=== PATIENT | female | born 1965 | race Caucasian/White ===

== ENCOUNTER 2023-04-15 08:47 | Observation (INO) ==
--- NOTE | 2023-03-14 14:28 | PAT Medication Instructions ---
Medication Instructions Date of Service March 14, 2023 Home Medications acetaminophen 650 mg tablet,extended release (Tylenol Arthritis Pain) 650 mg PO Q12H PRN Pain diclofenac sodium 2 % topical solution in packet (Pennsaid) 1 packet topical BID PRN Pain duloxetine 60 mg capsule,delayed release 60 mg PO BID folic acid 1 mg tablet 1 mg PO QAM gabapentin 100 mg capsule 100 mg PO TID guaifenesin 600 mg tablet, extended release 12 hr (Mucinex) 600 mg PO BID PRN Congestion leflunomide 20 mg tablet (Arava) 20 mg PO HS levothyroxine 150 mcg capsule 150 mcg PO QAM rituximab 10 mg/mL concentrate,intravenous (Rituxan) 10 mg IV UD vitamin B complex (B Complex-Vitamin B12 tablet) 1 tab PO QAM Black Elderberry 1 cap PO BID Magnesium Tablet 1 tab PO HS aspirin 81 mg tablet,delayed release 81 mg PO HS atorvastatin 20 mg tablet 20 mg PO HS cetirizine 10 mg tablet (Zyrtec) 10 mg PO DAILY PRN allergy relief coQ10 (ubiquinol) 100 mg capsule 100 mg PO HS ergocalciferol (vitamin D2) 1,250 mcg (50,000 unit) capsule (Vitamin D2) 1,250 mcg PO WK multivit,Ca,iron,vte-WL-jtxhwga-kvznmdf-zeod-ZAZT 3 mg-133 mcg capsule 1 cap PO BID potassium chloride 10 mEq capsule,extended release 10 meq PO QAM verapamil 120 mg tablet 120 mg PO HS ASK your surgeon for instructions diclofenac sodium 2 % topical solution in packet (Pennsaid) 1 packet topical BID PRN Pain ASK your prescriber and surgeon rituximab 10 mg/mL concentrate,intravenous (Rituxan) 10 mg IV UD leflunomide 20 mg tablet (Arava) 20 mg PO HS STOP taking 2 weeks before surgery (or as soon as possible if surgery is within 2 weeks) Black Elderberry 1 cap PO BID coQ10 (ubiquinol) 100 mg capsule 100 mg PO HS multivit,Ca,iron,znk-YJ-asvenar-bfvyxnb-cnjv-PMXF 3 mg-133 mcg capsule 1 cap PO BID DO NOT take the morning of surgery folic acid 1 mg tablet 1 mg PO QAM guaifenesin 600 mg tablet, extended release 12 hr (Mucinex) 600 mg PO BID PRN Congestion vitamin B complex (B Complex-Vitamin B12 tablet) 1 tab PO QAM cetirizine 10 mg tablet (Zyrtec) 10 mg PO DAILY PRN allergy relief ergocalciferol (vitamin D2) 1,250 mcg (50,000 unit) capsule (Vitamin D2) 1,250 mcg PO WK potassium chloride 10 mEq capsule,extended release 10 meq PO QAM Take morning of surgery With a small sip of water, OTHERWISE NOTHING TO EAT OR DRINK AFTER MIDNIGHT: acetaminophen 650 mg tablet,extended release (Tylenol Arthritis Pain) 650 mg PO Q12H PRN Pain (if needed) duloxetine 60 mg capsule,delayed release 60 mg PO BID gabapentin 100 mg capsule 100 mg PO TID levothyroxine 150 mcg capsule 150 mcg PO QAM Take evening before surgery acetaminophen 650 mg tablet,extended release (Tylenol Arthritis Pain) 650 mg PO Q12H PRN Pain (if needed) duloxetine 60 mg capsule,delayed release 60 mg PO BID gabapentin 100 mg capsule 100 mg PO TID guaifenesin 600 mg tablet, extended release 12 hr (Mucinex) 600 mg PO BID PRN Congestion (if needed) Magnesium Tablet 1 tab PO HS aspirin 81 mg tablet,delayed release 81 mg PO HS atorvastatin 20 mg tablet 20 mg PO HS cetirizine 10 mg tablet (Zyrtec) 10 mg PO DAILY PRN allergy relief (if needed) verapamil 120 mg tablet 120 mg PO HS Other Notes If you have any questions please call us at [phone] or [phone] or [phone] or [phone]
--- NOTE | 2023-03-19 12:13 | Anesthesiology Consultation ---
Date of Service March 19, 2023 Assessment & Plan (1) Encounter for pre-operative examination: - Case discussed in detail with Dr Tejeda who advised that patient does not require further evaluation prior to surgery from his standpoint. - Outpatient joint assessment: Patient is currently scheduled for inpatient pathway. If re-evaluated and patient/surgeon requests outpatient pathway, patient is not recommended candidate for outpatient joint program from anesthesia standpoint. Chart Review Chart Review: Acceptable Risk for Surgery and Patient seen in Pre Admission Testing Teaching & Discussion Pre-Anesthesia Teaching/Discussion Notes: Instructed NPO after midnight before surgery, except medications with 15 cc of water. Medication instructions provided according to the PAT guidelines. History Surgery Operation Date: 04/02/23 07:00 Proposed Procedures p Left Total Knee Arthroplasty - Braulio Montoya MD Height/Weight Height: 5 ft 5 in Weight: 127.006 kg Allergies Allergy/AdvReac Type Severity Reaction Status Date / Time egg Allergy Intermediate Migraine Verified 03/13/23 12:41 Penicillins Allergy Intermediate Hives Verified 03/13/23 12:41 doxycycline Allergy Mild Rash Verified 03/13/23 12:41 Sulfa (Sulfonamide Allergy Mild itching Verified 03/13/23 12:41 Antibiotics) etanercept [From Enbrel] Allergy Unknown can't Verified 03/13/23 12:41 remember reaction infliximab [From Remicade] Allergy Unknown can't Verified 03/13/23 12:41 remember reaction minocycline Allergy Unknown can't Verified 03/13/23 12:41 remember reaction tramadol [From Ultram] Allergy Unknown can't Verified 03/13/23 12:41 remember reaction Medications Home Medications Medication Instructions Recorded Confirmed Last Taken acetaminophen 650 mg 650 mg PO Q12H PRN Pain 09/28/20 03/13/23 Unknown tablet,extended release (Tylenol Arthritis Pain) diclofenac sodium 2 % topical 1 packet topical BID PRN Pain 09/28/20 03/13/23 Unknown solution in packet (Pennsaid) duloxetine 60 mg capsule,delayed 60 mg PO BID 09/28/20 03/13/23 Unknown release folic acid 1 mg tablet 1 mg PO QAM 09/28/20 03/13/23 Unknown gabapentin 100 mg capsule 100 mg PO TID 09/28/20 03/13/23 Unknown guaifenesin 600 mg tablet, 600 mg PO BID PRN Congestion 09/28/20 03/13/23 Unknown extended release 12 hr (Mucinex) leflunomide 20 mg tablet (Arava) 20 mg PO HS 09/28/20 03/13/23 Unknown levothyroxine 150 mcg capsule 150 mcg PO QAM 09/28/20 03/13/23 Unknown rituximab 10 mg/mL 10 mg IV UD 09/28/20 03/13/23 Unknown concentrate,intravenous (Rituxan) vitamin B complex (B 1 tab PO QAM 09/28/20 03/13/23 Unknown Complex-Vitamin B12 tablet) Black Elderberry 1 cap PO BID 03/13/23 03/13/23 Unknown Magnesium Tablet 1 tab PO HS 03/13/23 03/13/23 Unknown aspirin 81 mg tablet,delayed 81 mg PO HS 03/13/23 03/13/23 Unknown release atorvastatin 20 mg tablet 20 mg PO HS 03/13/23 03/13/23 Unknown cetirizine 10 mg tablet (Zyrtec) 10 mg PO DAILY PRN allergy relief 03/13/23 03/13/23 Unknown coQ10 (ubiquinol) 100 mg capsule 100 mg PO HS 03/13/23 03/13/23 Unknown ergocalciferol (vitamin D2) 1,250 1,250 mcg PO WK 03/13/23 03/13/23 Unknown mcg (50,000 unit) capsule (Vitamin D2) multivit,Ca,iron,dox-RD-jjczgzn-uncqxgo-giof-WWGX 1 cap PO BID 03/13/23 03/13/23 Unknown 3 mg-133 mcg capsule potassium chloride 10 mEq 10 meq PO QAM 03/13/23 03/13/23 Unknown capsule,extended release verapamil 120 mg tablet 120 mg PO HS 03/13/23 03/13/23 Unknown Past Medical History Medical History (Updated 03/20/23 @ 08:56 by Liz Parry PA-C) Arthritis 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>blood work wnl now Degenerative disc disease Depression Fibromyalgia GERD (gastroesophageal reflux disease) controlled, stable per pt Giant cell arteritis several yrs ago, s/p prednisone course, follows with rheumatology and ophthalmology; denies visual changes since stroke History of anemia History of blood transfusion x 3, 03/2022 History of COVID-19 03/2022>still has sense of smell problems *hospitalized at time with covid pneumonia @ [facility] Hyperlipidemia Hypertension controlled, stable in exception of elevated pain Hypothyroidism Kidney stone R at present-under monitoring Lymphedema legs bilat-denies limb restriction Migraine reason for verapamil Pulmonary embolism when dx with covid 03/2022 Rheumatoid arthritis Stroke "had 2 strokes when hospitalized for covid 03/2022>still has numbness left hand and impacted upper right visual field" Patient denies h/o seizures, heart attack, heart failure, or DM. Exercise / Class Metabolic Activity III < 4 Walking/Shop/Light housework (denies chest discomfort or shortness of breath with usual activities, ambulates with cane or rolling walker; no steps in home) Past Family History Family History Other No family history of adverse response to anesthesia Past Surgical History Surgical History (Updated 03/19/23 @ 12:38 by Liz Parry PA-C) H/O foot surgery rt foot>hammer toe and bunion correction History of ankle surgery rt ankle fusion History of colonoscopy History of esophagogastroduodenoscopy (EGD) History of hysterectomy History of tooth extraction Nausea and vomiting after administration of anesthetic agent denies needing scop patch Past Anesthesia History No Hx of Anesthesia Complications and No Family Hx of Anesthesia Complications History of PONV History of PONV (denies needing scop patch) and Hx of Motion Sickness Social History Smoking Status: Never smoker Do You Dip or Chew Tobacco: No Hx Alcohol Use: No substance use type: does not use Review of Systems Snoring, denies witnessed apneas. Patient denies chest pain, shortness of breath, dyspnea on exertion, fever, chills, cough, wheezing, or palpitations. Physical Exam Vital Signs Vitals BP 131/70 P 80 TEMP 98.6 SP02 95% on RA RESP 18 Physical Patient resting comfortably in chair in NAD, alert and oriented, responding appropriately throughout visit Mildly limited cervical extension range of motion with mild pain, without radicular symptoms TMD 3.5 finger breadths Mallampati Score 3 Dentition: loose right upper cap and one fixed cap, denies chipped or loose teeth, crowns, implants or bridges Lungs: normal respiratory effort. Good air movement, clear throughout to auscultation, no adventitious breath sounds Cardiac: regular rate and rhythm, no murmurs noted Carotid arteries: negative bruit bilat Lab Results Anesthesia Preop Results Results Anesthesia Widget: WBC 5.70 K/ul (4.8-10.8) 03/19/23 Hgb 13.4 g/dl (12.0-16.0) 03/19/23 Hct 41.4 % (37.0-47.0) 03/19/23 Plt 359 K/uL (130-400) 03/19/23 Na 141 mmol/L (136-145) 03/19/23 K 4.4 mmol/L (3.5-5.1) 03/19/23 Cl 107 mmol/L (98-107) 03/19/23 CO2 29 mmol/L (21-32) 03/19/23 BUN 22 mg/dl (6-23) 03/19/23 Creat 0.83 mg/dl (0.6-1.2) 03/19/23 Glucose Level 73 mg/dl (70-99(Fasting)) 03/19/23 PT 10.3 Seconds (9.0-12.0) 03/19/23 PTT 26.2 Seconds (21.0-31.0) 03/19/23 INR 0.9 (0.9-1.1) 03/19/23 Blood Type A Positive 03/19/23 Antibody Screen NEGATIVE 03/19/23 Testing Electrocardiogram Date: 03/19/23 NSR, rate 75 bpm Chest X-Ray Date: 03/19/23 No acute process Cervical Spine Date: 03/19/23 Severe multilevel intervertebral disc space narrowing with moderate to advanced spondylotic spurring and facet arthrosis. No acute fracture, subluxation or osseous erosion identified. Normal predental interval. No prevertebral edema. Lung apices appear clear. IMPRESSION: No acute fracture or subluxation
--- NOTE | 2023-04-13 06:59 | History & Physical Report ---
Date of Service April 13, 2023 Assessment & Plan (1) Osteoarthritis of knee: Patient has severe right knee arthritis with progressive deformity chronic lymphedema and failed all conservative measures. She is certainly not an optical Candidate due to multiple reasons but really no other choice or options to improve her functional status. She is hoping to proceed with knee replacement. She understands the risks especially with her chronic lymphedema history of a DVT and PE in the past. Organ to take her to the operating to a hinged knee replacement most likely. Will use Xarelto for DVT prophylaxis as well as teds and SCDs. She will continue lymphedema treatment to make this optimal. We will use perioperative antibiotics and likely put some antibiotics in her cement. Despite this the risks of DVT PE infection were explained to the patient she understands and desires to proceed. Informed consent was obtained. (2) Lymphedema: (3) Morbid obesity: (4) Fibromyalgia: History of Present Illness Chief Complaint: . Persistent left knee pain discomfort and instability and inability to ambulate. Primary Care Provider: Ching Stevens MD . The patient is a 59-year-old female with a history of chronic bilateral lower extremity lymphedema and progressive knee pain discomfort and deformity. She is currently on disability for multiple 1 issues including arthritis, fibromyalgia, migraine headaches. She has a several year history of increasing bilateral knee pain discomfort left side quite a bit worse than the right. She is developed p rogressive deformity to her knee to the point where she has to use a cane to get around and cannot walk more than about a block at a time. She been through extensive treatment including physical therapy and lymphedema treatment which has been unsuccessful. She is asked extensive nonoperative management of arthritis by Dr. Arredondo in the past. She is really hoping to get her knee fixed. Markedly debilitated by her pain and dysfunction. Allergies Allergy/AdvReac Type Severity Reaction Status Date / Time egg Allergy Intermediate Migraine Verified 03/13/23 12:41 Penicillins Allergy Intermediate Hives Verified 03/13/23 12:41 doxycycline Allergy Mild Rash Verified 03/13/23 12:41 Sulfa (Sulfonamide Allergy Mild itching Verified 03/13/23 12:41 Antibiotics) etanercept [From Enbrel] Allergy Unknown can't Verified 03/13/23 12:41 remember reaction infliximab [From Remicade] Allergy Unknown can't Verified 03/13/23 12:41 remember reaction minocycline Allergy Unknown can't Verified 03/13/23 12:41 remember reaction tramadol [From Ultram] Allergy Unknown can't Verified 03/13/23 12:41 remember reaction Home Medications Medication Instructions Recorded Confirmed Type acetaminophen 650 mg 650 mg PO Q12H PRN Pain 09/28/20 03/13/23 History tablet,extended release (Tylenol Arthritis Pain) diclofenac sodium 2 % topical 1 packet topical BID PRN Pain 09/28/20 03/13/23 History solution in packet (Pennsaid) duloxetine 60 mg capsule,delayed 60 mg PO BID 09/28/20 03/13/23 History release folic acid 1 mg tablet 1 mg PO QAM 09/28/20 03/13/23 History gabapentin 100 mg capsule 100 mg PO TID 09/28/20 03/13/23 History guaifenesin 600 mg tablet, 600 mg PO BID PRN Congestion 09/28/20 03/13/23 History extended release 12 hr (Mucinex) leflunomide 20 mg tablet (Arava) 20 mg PO HS 09/28/20 03/13/23 History levothyroxine 150 mcg capsule 150 mcg PO QAM 09/28/20 03/13/23 History rituximab 10 mg/mL 10 mg IV UD 09/28/20 03/13/23 History concentrate,intravenous (Rituxan) vitamin B complex (B 1 tab PO QAM 09/28/20 03/13/23 History Complex-Vitamin B12 tablet) Black Elderberry 1 cap PO BID 03/13/23 03/13/23 History Magnesium Tablet 1 tab PO HS 03/13/23 03/13/23 History aspirin 81 mg tablet,delayed 81 mg PO HS 03/13/23 03/13/23 History release atorvastatin 20 mg tablet 20 mg PO HS 03/13/23 03/13/23 History cetirizine 10 mg tablet (Zyrtec) 10 mg PO DAILY PRN allergy relief 03/13/23 03/13/23 History coQ10 (ubiquinol) 100 mg capsule 100 mg PO HS 03/13/23 03/13/23 History ergocalciferol (vitamin D2) 1,250 1,250 mcg PO WK 03/13/23 03/13/23 History mcg (50,000 unit) capsule (Vitamin D2) multivit,Ca,iron,mlx-DZ-cowufxw-smkuviv-cpat-UQQF 1 cap PO BID 03/13/23 03/13/23 History 3 mg-133 mcg capsule potassium chloride 10 mEq 10 meq PO QAM 03/13/23 03/13/23 History capsule,extended release verapamil 120 mg tablet 120 mg PO HS 03/13/23 03/13/23 History Past Med/Surg History Medical History Arthritis 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>blood work wnl now Degenerative disc disease Depression Fibromyalgia GERD (gastroesophageal reflux disease) controlled, stable per pt Giant cell arteritis several yrs ago, s/p prednisone course, follows with rheumatology and ophthalmology; denies visual changes since stroke History of anemia History of blood transfusion x 3, 03/2022 History of COVID-19 03/2022>still has sense of smell problems *hospitalized at time with covid pneumonia @ [facility] Hyperlipidemia Hypertension controlled, stable in exception of elevated pain Hypothyroidism Kidney stone R at present-under monitoring Lymphedema legs bilat-denies limb restriction Migraine reason for verapamil Pulmonary embolism when dx with covid 03/2022 Rheumatoid arthritis Stroke "had 2 strokes when hospitalized for covid 03/2022>still has numbness left hand and impacted upper right visual field" Surgical History H/O foot surgery rt foot>hammer toe and bunion correction History of ankle surgery rt ankle fusion History of colonoscopy History of esophagogastroduodenoscopy (EGD) History of hysterectomy History of tooth extraction Nausea and vomiting after administration of anesthetic agent denies needing scop patch Family History Other No family history of adverse response to anesthesia Social History Smoking Status: Never smoker Second Hand Exposure: Yes (as a child); Do You Dip or Chew Tobacco: No; Hx Alcohol Use: No Preferred Language: Scottish Wedding Consultant Required: No Beliefs That Will Affect Care: None Current Living Situation: Significant Other Feels Safe at Home: Yes Assistive Devices: Cane, Glasses and Walker Review of Systems All systems reviewed & are unremarkable except as noted in HPI & below. Physical Exam . Physical examination reveals a pleasant fairly large middle-age female who looks in reasonably good health. Examination left knee reveals patient walks with use of a cane. Got a fairly large soft tissue envelope. She got significant lymphedema in both legs plegic. Below the knee. He is got marked valgus deformity to her knee. This is increased with weightbearing. She got laxity of her MCL with stress testing. Range of motion about 5 degrees short of full extension to about 95 degrees of flexion. Limited by soft tissues. No pain with hip motion. Constitutional WD/WN, vitals as above Respiratory normal respiratory effort, lungs clear to auscultation Cardiovascular RRR, no murmur, no edema Gastrointestinal (Abdomen) normal bowel sounds, soft, nontender, no hepatosplenomegaly Neurologic patellar DTR's 2+ bilat, sensation intact and PERRL, EOMI, accommodation nl, no face palsy, no dysarthria Lymphatic Fairly extensive diffuse symmetric lymphedema in her lower extremities below her knees. Results & Data Results & Data Laboratory Results . Diagnostic Findings . X-rays of the left knee reveals advanced left knee DJD. She got complete loss of her lateral joint space we got severe valgus 2 mm knee with widening of the medial clear space. Osteophytes primarily laterally. PG Care Time/CCT Total # of Minutes Spent Total Time Spent with Patient: Total time spent is greater than 50% in coordination of care (as documented) at patient's floor/unit and/or counseling patient: Coding Level of Care Code None Diagnoses Osteoarthritis of knee M17.10 Lymphedema I89.0 Morbid obesity E66.01 Fibromyalgia M79.7
[~2023-04-15 08:47] MED LIST: ACETAMINOPHEN 500 MG TAB PO SCH; ALLERGY Noted to ORDERED Medication SCH; BUPIVACAINE 0.25% PF 30 ML VIAL ONE; BUPIVACAINE 0.5 % 5 MG/1 ML PF 10ML VIAL ONE; BUPIVACAINE LIPOSOME/PF 266 MG, BUPIVACAINE/EPINEPHRINE 50 ML, SODIUM CHLORIDE 0.9% PF ... INFIL SCH; CeleBREX 200 MG CAP PO SCH; DEXAMETHASONE SOD INJ 4 MG/ML VIAL ONE; EPINEPHrine INJ 1 MG/ML AMP ONE; FAMOTIDINE 20 MG TAB PO SCH; LR 500ML BOLUS, THEN 15ML/HR IV SCH; LR 60ML/HR IV SCH; METOCLOPRAMIDE HCL 10 MG TABLET PO SCH; Scopolamine 1 MG TDSY TD SCH; Scopolamine CHECK PATCH PLACEMENT SCH; TRANEXAMIC ACID 1,000 MG **IV Intra-op IV SCH; dexAMETHasone**PF** 10 MG/ML VIAL IV SCH
--- NOTE | 2023-04-15 08:51 | History & Physical Bridge Note ---
Date of Service April 15, 2023 History & Physical Bridge Note I have examined the patient, reviewed the History & Physical and in the interval since the performance of the History & Physical I have noted the following changes of clinical significance: no changes noted. We will be doing a left Knee Replacement. Dictation mentions both left and right, but we will be doing the left knee.
[2023-04-15] MEDS ORDERED: ceFAZolin 3000MG/72.5 ML BAG IV ONE (09:06)
[2023-04-15] MEDS ORDERED: fentaNYL citrate PF 100 MCG/2 ML VIAL ONE ×2 (09:46→13:14)
[2023-04-15] MEDS ORDERED: MIDAZOLAM HCL 1 MG/ML 2ML VIAL ONE ×2 (09:46→11:35)
[2023-04-15] MEDS ORDERED: PROPOFOL IV EMULSION 10 MG/ML 20 ML VIAL IV ONE ×5 (09:47→13:43)
[2023-04-15] MEDS ORDERED: ONDANSETRON INJ 2 MG/ML 2 ML VIAL IV PRN ×2 (10:04→15:24)
[2023-04-15] MEDS ORDERED: fentaNYL citrate PF 100 MCG/2 ML VIAL IV PRN (10:04)
[2023-04-15] MEDS ORDERED: ATROPINE SULFATE 0.1 MG/ML 10ML SYR IV PRN (10:04)
[2023-04-15] MEDS ORDERED: ePHEDrine sulfate 50 MG/ML AMP IV PRN (10:04)
[2023-04-15] MEDS ORDERED: VANCOMYCIN HCL 1000MG/20ML VIAL ONE (10:47)
[2023-04-15] MEDS ORDERED: BUPIVACAINE/EPINEPHRINE 0.25% 1:200,000 30 ML VIAL ONE (10:47)
[2023-04-15] MEDS ORDERED: SODIUM CHLORIDE 0.9% PF 50 ML VIAL ONE (10:48)
[2023-04-15] MEDS ORDERED: BUPIVACAINE LIPOSOME 1.3% 266 MG/20 ML VIAL ONE (10:48)
[2023-04-15] MEDS ORDERED: LIDOCAINE 2% 2 ML VIAL/AMP(20MG/ML) INFIL ONE (11:39)
[2023-04-15] MEDS ORDERED: KETAMINE 50 MG/5 ML SYRINGE ONE (13:03)
[2023-04-15] MEDS ORDERED: ONDANSETRON INJ 2 MG/ML 2 ML VIAL ONE (13:47)
--- NOTE | 2023-04-15 14:23 | Operative Report ---
PG Post Operative Report Pre & Post Diagnosis Operation Date: 04/15/23 10:20 Pre-Op Diagnosis: Osteoarthritis of Left knee Post-Op Diagnosis: Osteoarthritis of Left knee I identified the patient and participated in the time-out.: Yes Procedure Operation Date: 04/15/23 10:20 Actual Procedures p Left Total Knee Arthroplasty(Left) - Braulio Montoya MD Surgeon Braulio Montoya MD Grab Hooker Basil Haas PA-C Estimated Blood Loss 50 Findings Consistent with Post-Op Diagnosis Operative findings reveal advanced left knee DJD. She had extensive grade 4 [id number] disease in all 3 compartments. She should have your valgus deformity to treat her knee with MCL deficiency. Her ACL was completely absent. The intercondylar notch was completely overgrown. She had a large osteophytes in all 3 compartments. Moderate-sized joint effusion. Large soft tissue envelope. Specimens Left knee sent for pathology. Anesthesia Type Spinal MAC Complications none Disposition Accompanied Patient To Recovery: No Indications Patient is a 58-year-old female said a long history of bilateral knee pain discomfort and progressive deformity. She been through extensive conservative care. She was actually having trouble even walking the even up to a block with her left knee. X-rays show severe tricompartment arthritis. She failed all conservative measures. She elected proceed with total knee arthroplasty. 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 We elect to use a hinged knee replacement due to her MCL deficiency. Description of Procedure Operative implants consist of: 1. Biomet OSS distal femoral hinged surface replacement with a 90 mm x 13 mm cemented stem. 2. Biomet OSS nonmodular long tibial tray-size 71. 3. 12 mm hinged polyethylene insert. 4. 31 x 8 all poly patella. The patient was taken the operating, identified, placed on the operating table supine position but all contact areas were appropriately padded. IV antibiotics were provided by the anesthesia team. A spinal anesthetic and abductor canal block had provided in the holding area. Gonzalez catheter was placed in sterile fashion. A left thigh-high tourniquet was placed. The left lower extremities then prepped and draped in usual sterile fashion. The left leg was elevated exsanguinated with use of an Esmarch and the turn was placed at 350 mmHg. An anterior posterior left knee was then performed to longitudinal incision centered over the patella. Sharp dissection Through subcutaneous tissue down the extensor mechanism. She had a very large soft tiss ue envelope. A medial prepped arthrotomy incision was made. Some subperiosteal dissection was carried out medially. The fat pad was resected from Neath patella tendon. Lateral patellofemoral ligament was released. Patella subluxated laterally. The knee was flexed. The osteophytes taken off distal femur. The ACL was absent. The PCL was released from distal femur the tibia subluxated anteriorly. Attention drawn the tibia. The intercondylar eminence was resected. The IM cutting guide was placed and the proximal tibial cut was made remove about 3 to 4 mm of bone from the medial side. The tibia was sized to a size 71. The drill and stem punch for the nonmodular long tibial tray was used and then the tibial tray was placed. Fit quite nicely. Attention drawn the femur. The distal femur stem with a sharp drill. Intramedullary canal was suction. A left 5 degree distal femoral resection block was placed. The distal femoral cut was made to remove the for the 3 cm distal lateral resurfacing segment. The IM fransisca was then placed again. The AP cutting guide was placed in the made parallel to the epicondylar axis. The anterior posterior cuts were made. I then reamed up to about a 16. We then trialed different implants and there the anterior flange of the femoral component would not quite fit the down on the bone as it was a too small. I then had to adjust very gradually resect some of the anterior femur to allow this to fit appropriately. We then trialed the knee and the 12 mm insert fit most appropriately. Attention drawn the patella. The patella is cleaned of all soft tissue. Patella thickness measured about 18 mm in thickness cut down to 13. It was sized to a size 31 patella. There were some very large osteophytes which were removed from around the patella. The lug holes were drilled for the patella button. Lateral osteophytes removed. Patella button was placed and the knee was taken through range of motion. Patella tracked quite nicely with no thumbs test. He was much improved from preoperatively. We elect to place these implants. Nupathe all trial implants were removed. Bone cement restrictors were placed in the distal femur and proxi mal tibia. I irrigated the wound extensively. We did inject locally with 100 cc of combination of 20 of Exparel, 30 cc normal saline, 50 cc of quarter percent Marcaine with epinephrine. We used 2 different packs of cement. A double batch of Palacos G cement was mixed with additional gram of vancomycin and the tibia was cemented. A additional double batch of Palacos G cement was mixed with an additional gram of vancomycin the femoral component was cemented in place. We placed the trial implant and then this and the patella was then cemented in the routine fashion. The knee was brought out in full extension till cement hardened. Final cement check was then performed. We then remove the trial bearing and placed a permanent 12 mm bearing. Attention drawn toward closing. The wounds irrigated coconuts pulsatile solution. The tourniquet was let down for tourniquet time of 106 minutes. Hemostasis reduced electrocautery. I did place an additional gram of vancomycin in the deep tissues as she is got chronic lymphedema and her risk of infection is significantly higher. The extensor mechanism then closed with #1 PDS suture in a [id number] fashion. Extensor mechanism checked found to be intact with subcutaneous tissues then closed with 2 Dexon suture in buried interrupted fashion skin was closed skin lavonne. Leg was then cleaned and dried and sterile dressed with Xeroform, 4 fours, sterile cast padding, Meet bandage were applied. The patient then transferred to the recovery room in stable condition. The patient tolerated procedure well and there were no complications. Basil Haas, my physician neurology physician assistant, was present for the entire procedure. His assistance was essential and required for appropriate patient positioning, prepping and draping, surgical exposure, performing the technical details of the operation, placement the implants, closure of the wound, and placement of the sterile bandage. I attest to the content of the Intraoperative Record and any orders documented therein. Any exceptions are noted below.
--- NOTE | 2023-04-15 14:49 | XRay Report ---
TWO VIEWS LEFT KNEE CLINICAL HISTORY: Postoperative examination. FINDINGS: AP and crosstable lateral portable views of the left knee are obtained. A hinged left knee arthroplasty is in near anatomic alignment. There are long tibial and femoral stems. There has been u ndersurface remodeling of the patella. No acute fracture is seen. There are expected postoperative ch anges around the knee including skin clips, soft tissue edema, and subcutaneous gas. IMPRESSION: Expected postoperative changes status post left knee arthroplasty. No acute fracture is s een. ACT 112: Negative or not required by law. Electronically signed by: Abel Pritchett M.D. 04/15/2023 2:48 PM
--- NOTE | 2023-04-15 14:53 | Anesthesiology Progress Note ---
Date of Service April 15, 2023 Anesthesia Post Procedure Vital Signs Vital Signs: Temp Pulse Resp BP Pulse Ox O2 Del Method O2 Flow Rate 04/15/23 14:50 36.6 C 77 14 129/71 95 Nasal Cannula 04/15/23 14:40 75 15 135/72 96 Nasal Cannula 04/15/23 14:30 78 15 155/77 H 96 Oxymask 2 04/15/23 14:20 94 H 18 160/68 H 98 Oxymask 4 04/15/23 14:17 36.3 C L 89 15 187/86 H 98 Oxymask 6 Pain Intensity Lower Back: Pain Intensity: 5 Left Shoulder: Pain Intensity: 7 Transfer of Care Handoff Completed per policy Notes Mental Status: alert / awake / arousable Patient Amnestic to Procedure: Yes Nausea / Vomiting: adequately controlled Pain: adequately controlled Airway Patency, RR, SpO2: stable & adequate BP & HR: stable & adequate Hydration State: stable & adequate Anesthetic Complications: no major complications apparent
[2023-04-15] MEDS ORDERED: bisacodyL 10 MG SUPP PR PRN (15:24)
[2023-04-15] MEDS ORDERED: MAGNESIUM HYDROXIDE SUSP 30 ML UDC PO PRN (15:24)
[2023-04-15] MEDS ORDERED: CETIRIZINE HCL 10 MG TABLET PO PRN (15:24)
[2023-04-15] MEDS ORDERED: ALUMINUM/MAGNESIUM SUSP 30 ML UDC PO PRN (15:24)
[2023-04-15] MEDS ORDERED: RITUXIMAB 10 MG/ML IV SCH (15:24)
[2023-04-15] MEDS ORDERED: guaiFENesin 600 MG TABCR PO PRN (15:24)
[2023-04-15] MEDS ORDERED: HYDROmorphone INJ 0.5 MG/0.5 ML SYR IV PRN (15:24)
[2023-04-15] MEDS ORDERED: METOCLOPRAMIDE HCL INJ 5 MG/ML 2 ML VIAL IV PRN (15:24)
[2023-04-15] MEDS ORDERED: NALOXONE HCL 0.4 MG/1 ML VIAL/CARP IV PRN (15:24)
[2023-04-15] MEDS ORDERED: diphenhydrAMINE Capsule 25 MG CAP PO PRN (15:24)
[2023-04-15] MEDS ORDERED: DICLOFENAC SOD 1% GEL 100 GM TUBE EXT PRN (15:52)
[2023-04-15] MEDS: SODIUM CHLORIDE 0.9% 1000ML 1,000 ML IV SCH (15:56)
[2023-04-15] MEDS: Scopolamine CHECK PATCH PLACEMENT SCH ×2 (15:59→23:37)
[2023-04-15] MEDS: KETOROLAC 30 MG/ML VIAL IV SCH ×2 (17:37→23:37)
[2023-04-15] MEDS: ASCORBIC ACID 500 MG TAB PO SCH (17:37)
[2023-04-15] MEDS: LEFLUNOMIDE 10 MG TAB PO SCH (20:07)
[2023-04-15] MEDS: ACETAMINOPHEN 500 MG TAB PO SCH (20:07)
[2023-04-15] MEDS: DULoxetine HCL 60 MG CAP PO SCH (20:07)
[2023-04-15] MEDS: GABAPENTIN 100 MG CAP PO SCH (20:07)
[2023-04-15] MEDS: VERAPAMIL HCL 40 MG TAB PO SCH (20:07)
[2023-04-15] MEDS: ATORVASTATIN 20 MG TAB PO SCH (20:07)
[2023-04-15] MEDS: ASPIRIN 81 MG ECTAB PO SCH (20:08)
[2023-04-15] MEDS: DOCUSATE SODIUM 100 MG CAP PO SCH (20:08)
[2023-04-15] MEDS: SENNA 8.6 MG TAB PO SCH (20:08)
[2023-04-15] MEDS ORDERED: TRANEXAMIC ACID / 0.7% NACL 1,000 MG/100 ML BAG IV SCH (20:15)
[2023-04-15] MEDS: ceFAZolin 2000MG 2,000 MG/15 ML SYR IV SCH (20:23)
[2023-04-15] MEDS ORDERED: SENNA 8.6 MG TAB PO SCH (21:00)
[2023-04-15] MEDS ORDERED: MAGNESIUM PO SCH (21:00)
[2023-04-15] MEDS ORDERED: BLACK ELDERBERRY PO SCH (21:00)
[2023-04-15] MEDS ORDERED: NON-FORMULARY MEDICATION (Coq10 (Ubiquinol) 100 mg Capsule) PO SCH (21:00)
[2023-04-16] MEDS: SODIUM CHLORIDE 0.9% 1000ML 1,000 ML IV SCH (00:36)
[2023-04-16] MEDS: oxyCODONE HCL IR 5 MG TAB (IMMEDIATE RELEASE) PO PRN ×3 (01:59→16:55)
[2023-04-16] MEDS: KETOROLAC 30 MG/ML VIAL IV SCH (05:10)
[2023-04-16] MEDS: ceFAZolin 2000MG 2,000 MG/15 ML SYR IV SCH (05:10)
[2023-04-16] MEDS: LEVOTHYROXINE SODIUM 150 MCG TABLET PO SCH (05:10)
[2023-04-16 07:44] LABS: Hematocrit (blood only) 34.5 % (37.0-47.0); Hemoglobin 11.1 g/dl (12.0-16.0); Mean Corpuscular Hemoglobin 32.2 pg (25.0-34.0); Mean Corpuscular Hgb Conc 32.2 g/dL (32.0-36.0); Mean Platelet Volume 10.3 fL (9.4-12.4); Platelet Count 323 K/uL (130-400); RDW Coefficient of Variation 13.6 % (11.5-14.5); RDW Standard Deviation 49.1 fL (36.4-46.3); Red Blood Count 3.45 M/uL (4.20-5.40); White Blood Count 11.71 K/ul (4.8-10.8)
[2023-04-16 07:49] LABS: Calcium 8.1 mg/dl (8.6-10.3); Creatinine Clr Calc Pharmacy 107.8 ml/min; Est GFR (African American) 95.6 ml/min; Est GFR (Non-African American) 82.5 ml/min; Potassium 3.9 mmol/L (3.5-5.1)
[2023-04-16] MEDS ORDERED: dexAMETHasone 10 MG in SYRINGE 0 ML IV SCH (08:00)
[2023-04-16] MEDS: ACETAMINOPHEN 500 MG TAB PO SCH ×3 (09:39→19:39)
[2023-04-16] MEDS: Scopolamine CHECK PATCH PLACEMENT SCH ×2 (09:40→15:31)
[2023-04-16] MEDS: DOCUSATE SODIUM 100 MG CAP PO SCH ×2 (09:40→19:40)
[2023-04-16] MEDS: MULTIVITAMIN TAB PO SCH (09:40)
[2023-04-16] MEDS: ASCORBIC ACID 500 MG TAB PO SCH ×2 (09:40→16:56)
[2023-04-16] MEDS: GABAPENTIN 100 MG CAP PO SCH ×3 (09:41→19:41)
[2023-04-16] MEDS: DULoxetine HCL 60 MG CAP PO SCH ×2 (09:41→19:41)
[2023-04-16] MEDS: FOLIC ACID 1 MG TAB PO SCH (09:41)
[2023-04-16] MEDS: POTASSIUM CHLORIDE 10 MEQ TABCR PO SCH (09:41)
[2023-04-16] MEDS: VITAMIN B COMPLEX TAB PO SCH (09:42)
--- NOTE | 2023-04-16 09:56 | Orthopedic Progress Note ---
Date of Service April 16, 2023 Assessment & Plan (1) Status post left knee replacement: 58-year-old female postop day 1 from a hinged knee replacement cer for severe right tricompartment arthritis and marked deformity and MCL deficiency. She is doing well. Pain is controlled. She is neurologically intact. Plan: 1. DVT prophylaxis including thigh-high teds, SCDs, will start Xarelto today. 2. Pain control doing pretty well with current pain regimen. 3. PT OT. Weight-bear as tolerated. Left total knee protocol. 4. Disposition. Planning to disc charge to home if does okay in therapy today. Subjective .58-year-old female with multiple medical comorbidities now postop day 1 from a left total knee replacement done for advanced severe knee arthritis. She is doing well. Pain is controlled. No chest pain or shortness of breath. Not feeling dizzy or lightheaded. Pain is very well controlled. Review of Systems All systems reviewed & are unremarkable except as noted in HPI & below. Physical Exam .Physical exam shows a pleasant elderly female. Sitting up in her bedside chair talking to the occupational therapist. Examination left knee reveals a dressing clean dry and intact. She can dorsiflex and plantarflex her foot and toes appropriately. She is neurologically intact. Respiratory normal respiratory effort, lungs clear to auscultation Cardiovascular RRR, no murmur, no edema Gastrointestinal (Abdomen) normal bowel sounds, soft, nontender, no hepatosplenomegaly Results & Data Results & Data Laboratory Results .Hemoglobin 11.1. Hematocrit 34.5. Electrolytes are stable. Diagnostic Findings . PG Care Time/CCT Total # of Minutes Spent Total Time Spent with Patient: Total time spent is greater than 50% in coordination of care (as documented) at patient's floor/unit and/or counseling patient: Coding Level of Care Code 53393 Post Operative Follow-Up Diagnoses Status post left knee replacement Z96.652
[2023-04-16] MEDS: RIVAROXABAN 10 MG TABLET PO SCH (15:31)
[2023-04-16] MEDS: ASPIRIN 81 MG ECTAB PO SCH (19:40)
[2023-04-16] MEDS: ATORVASTATIN 20 MG TAB PO SCH (19:41)
[2023-04-16] MEDS: SENNA 8.6 MG TAB PO SCH (19:42)
[2023-04-16] MEDS: LEFLUNOMIDE 10 MG TAB PO SCH (19:42)
[2023-04-16] MEDS: VERAPAMIL HCL 40 MG TAB PO SCH (19:43)
[2023-04-17] MEDS: Scopolamine CHECK PATCH PLACEMENT SCH ×2 (00:52→07:39)
[2023-04-17] MEDS: oxyCODONE HCL IR 5 MG TAB (IMMEDIATE RELEASE) PO PRN ×2 (01:36→07:39)
[2023-04-17] MEDS: LEVOTHYROXINE SODIUM 150 MCG TABLET PO SCH (06:26)
--- NOTE | 2023-04-17 07:13 | Orthopedic Progress Note ---
Date of Service April 17, 2023 Assessment & Plan (1) Status post left knee replacement: 58-year-old female with multiple medical comorbidities and chronic lymphedema postop day 2 from left knee replacement. Little bit better this morning. Little bit more pain. The dizziness and lightheadedness and at least seems to be improving the moment. Plan: 1. DVT prophylaxis including thigh-high teds SCDs and Xarelto. She is also on a baby aspirin once a day. 2. PT OT. Weight-bear as tolerated left total knee protocol. 3. Pain control doing okay with current pain regimen 4. disposition initial plan was discharged to home. We will see how therapy goes today. If she does not do any better she might need a rehab stay. Subjective . 58-year-old female now postop day 2 from a left hinged knee replacement. She is doing little bit better this morning. Was getting quite a bit dizzy and a little lightheaded yesterday with ambulation. Got better last night going to the bathroom. Denies any chest pain or shortness of breath. Reports moderate knee pain. Review of Systems All systems reviewed & are unremarkable except as noted in HPI & below. Physical Exam . Physical exam shows a pleasant obese middle-aged female. She is lying in bed looks pretty comfortable this morning. Examination left leg reveals a large soft tissue envelope. Discussed with some signs of small amount of bloody drainage from the incision sites. She can dorsiflex and plantarflex her foot appropriately. She cannot do a good straight leg raise. Results & Data Results & Data Laboratory Results . Diagnostic Findings . PG Care Time/CCT Total # of Minutes Spent Total Time Spent with Patient: Total time spent is greater than 50% in coordination of care (as documented) at patient's floor/unit and/or counseling patient: Coding Level of Care Code 72987 Post Operative Follow-Up Diagnoses Status post left knee replacement Z96.652
[2023-04-17] MEDS: ASCORBIC ACID 500 MG TAB PO SCH (07:39)
[2023-04-17] MEDS: RIVAROXABAN 10 MG TABLET PO SCH (07:40)
[2023-04-17] MEDS: DULoxetine HCL 60 MG CAP PO SCH (07:40)
[2023-04-17] MEDS: FOLIC ACID 1 MG TAB PO SCH (07:40)
[2023-04-17] MEDS: POTASSIUM CHLORIDE 10 MEQ TABCR PO SCH (07:41)
[2023-04-17] MEDS: GABAPENTIN 100 MG CAP PO SCH (07:41)
[2023-04-17] MEDS: DOCUSATE SODIUM 100 MG CAP PO SCH (07:41)
[2023-04-17] MEDS: ACETAMINOPHEN 500 MG TAB PO SCH (07:41)
[2023-04-17] MEDS: MULTIVITAMIN TAB PO SCH (07:42)
[2023-04-17] MEDS: VITAMIN B COMPLEX TAB PO SCH (07:42)
[2023-04-21] MEDS ORDERED: ERGOCALCIFEROL 50,000 UNITS 1250 MCG CAP PO SCH (09:00)
--- NOTE | 2023-04-22 06:34 | Discharge Summary ---
Date of Service April 22, 2023 Discharge Data Procedures Performed Operation Date: 04/15/23 10:20 Actual Procedures p Left Total Knee Arthroplasty(Left) - Braulio Montoya MD Hospital Course (1) Status post left knee replacement: This is a 58 year old patient admitted on 04/15/23 and underwent hinged total knee arthroplasty. She tolerated the procedure well and there were no complications. Transferred to the PACU post op and later to the orthopedic floor for further care. She was given ancef for antibiotic prophylaxis. She was also given TIKA stockings, SCDs, and xarelto for DVT prophylaxis. Hemoglobin, hematocrit, and vital signs were monitored during her hospital stay and remained stable. Did not require any blood transfusions. There were no complications during her hospital stay. By post op day #2 the patient was tolerating a regular diet, pain was reasonably controlled with oral pain medicine, and she was participating in physical therapy. On post op day #2 the patient was discharged home and set up with home health care. She was given printed discharge instructions including prescriptions for extra strength tylenol, cefadroxil, zofran, senokot, oxycodone, and xarelto. Continue physical therapy, weight bearing as tolerated. Continue TIKA stockings. Follow up approximately 2 weeks post op or sooner if there are problems or concerns. Coding Level of Care Code None Diagnoses Status post left knee replacement Z96.652
== END 2023-04-17 12:00 | disposition home health service (06) ==
LOC: ASU 08:47 → 3W 08:47